=== PATIENT | female | born 2005 | race Two or more races ===

== ENCOUNTER 2024-08-06 08:02 | Emergency (ER) | payer SELFPAY ==
[~2024-08-06] VITALS: Ht 152.4 cm; Wt 46.3 kg
--- NOTE | 2024-08-06 08:20 | ED.PDOC ---
General HPI Comments 19 y/o F, presents to the ED for CC of urinary frequency. Patient states, she has been experiencing urinary frequency with associated burning xdays. Patient denies flank pain, back pain, hematuria, fever, or chills. No other symptoms or modifying factors present at this time. Chief Complaint: Urinary Time Seen by MD: 08:15 Reviewed notes: Nurses Notes, Medications, Allergies Allergies: Coded Allergies: NO KNOWN ALLERGIES (Unverified , 08/06/24) Information Source: Patient Mode of Arrival: Ambulatory Severity: Moderate Inability to void: None Timing: Days Duration: Since onset Prehospital treatment: None Onset: Following sexual contact Symptoms: Dysuria, Frequency History of: None Location: None Modifying factors: None associated signs and symptoms: Dysuria, Frequency Past Medical History PAST MEDICAL HISTORY: Denies Surgical History: Denies all surgeries [employer] History: Denies all [employer] Hx Family History Family History: Unknown Social History Smoker: Non-Smoker Alcohol: Denies ETOH Use Drugs: Denies Drug Use Lives In: Home Genitourinary: reports: burning, frequency All Other Systems: Reviewed and Negative ( PER HPI) Physical Exam General Appearance: No Apparent Distress, Normal HEENT: Normal ENT Inspection, Pharynx Normal Neck: Full Range of Motion, Non-Tender, Normal, Normal Inspection Respiratory: Chest Non-Tender, Lungs Clear, No Accessory Muscle Use, No Res piratory Distress, Normal Breath Sounds Cardiovascular: No Edema, No Murmur, No Gallop, Normal Peripheral Pulses, Regular Rate/Rhythm Breast Exam: Deferred Gastrointestinal: No Organomegaly, Non Tender, No Pulsatile Mass, Normal Bowel Sounds, Soft Genitalia: Deferred Pelvic: Deferred Rectal: Deferred Extremities: No calf tenderness, Normal capillary refill, Normal inspection, Normal range of motion, Non-tender, No pedal edema Musculoskeletal : Apperance: Normal Neurologic: Alert, adult care provider II-XII nml as Tested, No Motor Deficits, Normal Affect, Normal Mood, No Sensory Deficits Cerebellar Function: Normal Reflexes: Normal Skin: Dry, Normal Color, Warm Lymphatic: No Adenopathy Was a procedure done? Was a procedure done?: No Differential Diagnosis Kidney stone (Female): Urinary obstruction, Urolithiasis Kidney stone (Male): N/A Penile/Scrotal: N/A Urinary Problem (Male): N/A Urinary Problem (Female): UTI, Vaginitis X-Ray, Labs, Meds, VS Vital Signs Date Time Temp Pulse Resp B/P (MAP) Pulse Ox O2 Delivery O2 Flow Rate FiO2 08/06/24 10:32 64 95 Room Air 08/06/24 10:32 97.9 64 20 102/61 (75) 95 97.9 08/06/24 08:33 98.6 60 16 103/65 (78) 99 98.6 08/06/24 08:33 60 16 99 Room Air* 0 21 08/06/24 08:16 98.1 62 16 106/68 (81) 98 98.1 Lab Test 08/06/24 08:28 Range/Units Urine Color Light-yellow Yellow Urine Clarity Turbid H Clear Urine pH 5.5 5.0-9.0 Urine Specific [place] 1.026 1.001-1.035 Urine Protein Negative Negative Urine Ketones Negative Negative Urine Blood 2+ H Negative /uL Urine Nitrite Negative Negative Urine Bilirubin Negative Negative Urine Urobilinogen Normal Negative mg/dL Urine Leukocyte Esterase 2+ Negative /uL Urine RBC 6 0 - 4 /hpf Urine Microscopic WBC 28 H 0-5 /HPF Urine Squamous Epithelial Cells Few <5 /hpf Urine Bacteria Few H None Seen /hpf Urine Mucus Few None Seen Urine Glucose Normal Normal mg/dL Urine Test Negative Negative 19-year-old female here with dysuria. Urine positive for UTI. At this time I have discharged him with Keflex. Advised her to follow up with the PCP in 2-3 days and return to the ER if symptoms worsen or persist. Additionally patient does not use condoms during intercourse. Strongly advised her to use condoms to prevent unwanted and also STDs. Patient agreeable. Time of 1ST Reevaluation: 08:45 Reevaluation 1ST: Unchanged Patient Education/Counseling: Diagnosis, Treatment Family Education/Counseling: No Family Present Departure 1 Departure Time of Disposition: 10:15 Impression: Primary Impression: UTI (urinary tract infection) Qualified Codes: N30.01 - Acute cystitis with hematuria Disposition: HOME / SELF CARE / HOMELESS Condition: Stable Additional Instructions: Follow up with the primary care physician in 2-3 days. Return to the ER if symptoms worsen or persist. e-Prescriptions Phenazopyridine HCl (Phenazopyridine Hydrochlo) 200 Mg Tab 200 MG PO BID for 3 Days, #6 TAB Prov: ESTEFANY TRIMBEL MD 08/06/24 Cephalexin (KEFLEX CAPSULE) 250 Mg Cp 500 MG PO BID for 20 Days, #20 CAP Prov: ESTEFANY TRIMBLE MD 08/06/24 Discharged With: Self Critical Care Note Critical Care Time?: No Stability Stability form required: No Heart Score Heart Score: Heart Score Response (Comments) Value History N/A 0 EKG N/A 0 Age N/A 0 Risk Factors N/A 0 Troponin N/A 0 Total 0 I personally scribed for ESTEFANY TRIMBLE MD ([email or web address]) on 08/06/24 at 08:20. Electronically submitted by Claire Allan ([email or web address]). I personally scribed for ESTEFANY TRIMBLE MD ([email or web address]) on 08/06/24 at 08:31. Electronically submitted by Claire Allan ([email or web address]). I personally scribed for ESTEFANY TRIMBLE MD ([email or web address]) on 08/06/24 at 09:05. Electronically submitted by Claire Allan ([email or web address]). ESTEFANY TRIMBLE MD Aug 06, 2024 08:20
[2024-08-06 08:33] VITALS: PULSE 60; RESP 16; O2SAT 99
[2024-08-06 08:41] LABS: Urine Bacteria FEW /hpf (None Seen); Urine Blood 2+ /uL (Negative); Urine Clarity Turbid (Clear); Urine Color Light-Yellow (Yellow); Urine Mucus FEW (None Seen); Urine Protein, UAD Negative (Negative); Urine Specific Gravity 1.026 (1.001-1.035); Urine Squamous Epithelial Cell FEW /hpf (<5); Urine Urobilinogen Normal (Negative); Urine WBC 28 /HPF (0-5); Urine pH 5.5 (5.0-9.0)
[2024-08-06 10:32] VITALS: BP 102/61; PULSE 64; RESP 20; TEMP 97.9; O2SAT 95
[2024-08-06] MEDS ORDERED: CEPH250C PO (10:51)
[2024-08-06] MEDS ORDERED: PHEN-922 PO (10:53)
== END 2024-08-06 11:00 | disposition home or self-care (01) ==
LOC: ER 08:02
DX: N39.0 Urinary tract infection, site not specified (principal)
CPT/HCPCS: 81001; 81025